=== PATIENT | female | born 1950 | race Hispanic/Latino ===

== ENCOUNTER 2022-08-11 06:46 | Day surgery (SDC) | payer OTHER ==
[~2022-08-11 06:46] MED LIST: MIDAZOLAM 2 MG/2 ML INJ IV NR; SODIUM CHLORIDE 0.9% 1000 ML 1,000 ML IV SCH; ceFAZolin/STERILE WATER 2 GM/20 ML SYRINGE IV NR; fentaNYL 100 MCG/2 ML INJ IV PRN
[2022-08-11] MEDS ORDERED: BUPIVACAINE/PF (0.5%) 5 MG/1 ML 30 ML VIAL INFILTRATI ONE (07:34)
[2022-08-11] MEDS ORDERED: rifAMPin 600 MG VIAL ONE (07:35)
[2022-08-11] MEDS ORDERED: HEPARIN 10,000 UNITS/10 ML VIAL ONE (07:35)
[2022-08-11] MEDS ORDERED: SODIUM CHLORIDE 0.9% 500 ML 500 ML ONE (07:35)
[2022-08-11] MEDS ORDERED: SODIUM CHLORIDE 0.9% 250ML 250 ML ONE (07:35)
[2022-08-11] MEDS ORDERED: SODIUM CHLORIDE P/F VIAL 10 ML 10 ML ONE (07:35)
[2022-08-11] MEDS ORDERED: ROPIVACAINE/PF (0.5%) 5 MG/1 ML 30 ML VIAL ONE (07:44)
[2022-08-11 08:08] LABS: Hematocrit 39.7 % (30.3-42.9); Hemoglobin 13.2 gm/dl (10.1-14.3); Mean Corpuscular HGB Conc 33 % (30-34); Mean Corpuscular Volume 95 fl (79-97); Platelet Count 231 K/mm3 (140-440); Red Blood Count 4.19 M/mm3 (3.65-5.03); Red Cell Distribution Width 17.2 % (13.2-15.2)
[2022-08-11 08:19] LABS: Calcium 9.5 mg/dL (8.4-10.2)
--- NOTE | 2022-08-11 08:23 | Anesthesia Day of Surgery ---
Anesthesia Day of Surgery - Day of Surgery Patient Examined: Yes Patient H&P Reviewed: Yes Patient is NPO: Yes Beta Blockers: Yes (nadolol today AM)
--- NOTE | 2022-08-11 08:23 | Anesthesia Consultation ---
Anesthesia Consult and Med Hx Date of service: 08/11/22 - Airway Anesthetic Teeth Evaluation: Dentures (lower) ROM Head & Neck: Adequate Mental/Hyoid Distance: Inadequate Mallampati Class: Class III Intubation Access Assessment: Possibly Difficult (small mouth opening) - Pre-Operative Health Status ASA Pre-Surgery Classification: ASA3 Proposed Anesthetic Plan: MAC Nerve Block: supraclavicular - Pulmonary Hx Respiratory Symptoms: No Hx Sleep Apnea: Yes (no CPAP) - Cardiovascular System Hx Hypertension: No (hypotension, took midodrine this morning) Hx Heart Attack/AMI: No Hx Cardia Arrhythmia: Yes (tachycardia; took nadolol this morning) - Central Nervous System CVA: No - Endocrine Hx End Stage Renal Disease: Yes (last HD 08/10/22) Hx Liver Disease: No Hx Non-Insulin Dependent Diabetes: Yes Hx Thyroid Disease: No - Hematic Hx Anemia: No - Additional Comments Anesthesia Medical History Comments: Hx mild PONV.
[2022-08-11] MEDS ORDERED: propofoL 200 MG/20 ML VIAL IV ONE ×2 (08:44→10:09)
[2022-08-11] MEDS ORDERED: MIDAZOLAM 2 MG/2 ML INJ ONE (08:45)
[2022-08-11] MEDS ORDERED: HYDROmorphone 0.5 MG/0.5 ML INJ ONE (08:45)
[2022-08-11] MEDS ORDERED: LIDOCAINE MPF (2%) 20 MG/1 ML VIAL 5 ML ONE (09:22)
[2022-08-11] MEDS ORDERED: HEPARIN 10,000 UNITS/10 ML VIAL IV ONE (09:36)
[2022-08-11] MEDS ORDERED: rifAMPin 600 MG VIAL IV ONE (09:37)
[2022-08-11] MEDS ORDERED: SODIUM CHLORIDE 0.9% P/F 10 ML VIAL IV ONE (09:37)
[2022-08-11] MEDS ORDERED: SODIUM CHLORIDE 0.9% 250 ML IVPB IV ONE ×2 (09:38)
[2022-08-11] MEDS ORDERED: SODIUM CHLORIDE 0.9% IRR 1,500 ML BOTTLE IR ONE (09:39)
[2022-08-11] MEDS ORDERED: ONDANSETRON 4 MG/2 ML INJ ONE ×2 (10:46→11:34)
--- NOTE | 2022-08-11 10:52 | Short Stay Summary ---
Short Stay Documentation Date of service: 08/11/22 Narrative H&P: See H&P - History H&P: obtained from office - Allergies and Medications Current Medications: Allergies No Known Allergies Allergy (Verified 08/09/22 13:59) Home Medications Medication Instructions Recorded Confirmed Last Taken Type nadoloL [Corgard] 40 mg PO QDAY 06/21/16 08/11/22 08/11/22 05:00 History Insulin Glargine,Hum.rec.anlog 28 unit SQ QHS 08/09/22 08/11/22 08/10/22 21:00 History [Lantus Solostar] Lispro Insulin [HumaLOG] 6 unit SQ TID 08/09/22 08/11/22 08/10/22 17:00 History Midodrine [Proamatine] 10 mg PO TID 08/09/22 08/11/22 08/11/22 05:00 History Pregabalin [Lyrica] 75 mg PO BID 08/09/22 08/11/22 08/11/22 05:00 History Rosuvastatin Calcium [Crestor] 40 mg PO QDAY 08/09/22 08/11/22 08/10/22 21:00 History Active Medications Cefazolin Sodium (Cefazolin/Sterile Water 2 Gm/20 Ml Syringe) 2 gm IV PREOP NR Stop: 08/11/22 23:59 Fentanyl (Fentanyl 100 Mcg/2 Ml Inj) 100 mcg IV ONCE PRN PRN Reason: sedation for nerve block Stop: 08/11/22 23:59 Last Admin: 08/11/22 08:49 Dose: 100 mcg Sodium Chloride (Nacl 0.9% 1000 Ml) 1,000 mls @ 42 mls/hr IV DIRECT BRIDGETTE Stop: 08/11/22 23:59 Last Admin: 08/11/22 08:45 Dose: 42 mls/hr Midazolam HCl (Midazolam 2 Mg/2 Ml Inj) 2 mg IV PREOP NR Stop: 08/11/22 23:59 Last Admin: 08/11/22 08:49 Dose: 2 mg - Brief post op/procedure progress note Date of procedure: 08/11/22 Pre-op diagnosis: End-Stage Renal Disease Post-op diagnosis: same Procedure: Creation of Left Axillary Artery to Left Axillary Vein Arteriovenous Graft with 6 mm Bovine Artegraft Anesthesia: MAC, regional Surgeon: TARIQ VILLALTA Estimated blood loss: minimal Pathology: none Condition: stable - Disposition Condition at discharge: Good Disposition: 01 HOME / SELF CARE / HOMELESS Short Stay Discharge Plan Activity: other (No heavy lifting with left arm for 2 weeks.) Wound: open to air, keep clean and dry, other (Okay to wash the left arm incisions with soap and water but do not soak in water for 2 weeks.) Follow up with: TARIQ VILLALTA MD [Staff Physician] - 14 Days Prescriptions: HYDROcodone/APAP 5-325 [[place] 5/325] 1 each PO Q6HR PRN #30 tablet PRN Reason: Pain
--- NOTE | 2022-08-11 10:56 | Operative Report ---
Operative Report Operative Report: Date of Procedure: 08/11/2022 Pre-operative Diagnosis: End-Stage Renal Disease Post-operative Diagnosis: Same Procedure(s): 1. The Left Axillary Artery to Axillary Vein Arteriovenous Loop Graft with 6 mm Bovine Artegraft Surgeon: Cem San M.D. Glove Cutter: García Anesthesia: Regional/MAC EBL: Minimal Counts: Correct Complications: None Condition: Stable Findings: Successful creation of left arm AV graft with adequate thrill at the completion of the case. Specimen: None Indication: The patient is a 71-year-old female with a history of end-stage renal disease who is currently on hemodialysis through a right internal jugular permacath. She is in need of long-term dialysis access and requires creation of a left arm arteriovenous graft. She was given the risk, benefits, and alternative procedures and consented to the procedure. Description of Procedure: Prior to being transported to the operating room the patient had a supraclavicular regional block performed in the preoperative area. The patient was then transported to the operating room and laid in supine position. A time out was performed and then the patient was sedated. Her left arm was then prepped and draped in normal sterile fashion. I initially made a longitudinal incision on the medial aspect of the arm just above the antecubital crease and carried this down to the brachial artery using sharp dissection. Evaluation of the brachial artery revealed that the artery was small and not adequate for the inflow of the arteriovenous graft. I made a longitudinal incision on the medial aspect of the arm just distal to the axillary crease and carried this down to the axillary vein using sharp dissection. I then turned my attention to the axillary artery. The axillary artery was dissected circumferentially and controlled with 2 vessel loops. I used a Corrina-Wick tunneler to tunnel the graft in a loop fashion. I used the brachial artery incision as the counterincision for tunneling the graft. After the graft was in place I infused with heparinized saline to ensure that it had not kinked or twisted. At this point I systemically heparinized the patient with 3000 units of heparin IV and then used angled DeBakey clamps to control flow in the axillary artery. I created an arteriotomy using an 11 blade and Wilkerson scissors. I then created an end-to-side anastomosis using a 6-0 Prolene in running fashion. After completing the anastomosis I released the clamps allowing flow into the graft, which had adequate flow. I reclamped the graft just distal to the arterial anastomosis. I then cut the venous portion of the graft to length and beveled the end. I controlled the axillary vein with a Satinsky clamp and created a venotomy using an 11 blade and Wilkerson scissors. I created an end-to-side anastomosis using a 6-0 Prolene in running fashion. Prior to completing the anastomosis I flashed the vein as well as the arterial inflow of the graft and then reclamped both vessels. I flushed the venotomy with heparinized saline, to clear any thrombus. I then completed the anastomosis and removed all clamps allowing flow into the graft. There was an adequate thrill. Hemostasis was achieved with a combination of Quick Clot and direct pressure. Once hemostasis was achieved both incisions were anesthetized with 0.5% Marcaine and closed in 2 layers using a 3-0 Vicryl, in a running fashion, in the deep dermal layer, and a 4-0 Monocryl, in running fashion, in the subcuticular layer. The wounds were then dressed with Dermabond. The patient tolerated the procedure well. All sponge, needle, and instrument counts were correct. The patient was taken to recovery in stable condition.
[2022-08-11] MEDS ORDERED: ONDANSETRON 4 MG/2 ML INJ IV ONE (11:35)
[2022-08-11] MEDS ORDERED: diphenhydrAMINE 50 MG/ML VIAL IV ONE (12:26)
[2022-08-11] MEDS ORDERED: diphenhydrAMINE 50 MG/ML VIAL ONE (12:28)
--- NOTE | 2022-08-11 12:48 | Post Anesthesia Evaluation ---
- Post Anesthesia Evaluation Patient Participated: Yes Airway Patent: Yes Stable Respiratory Function: Yes Nausea/Vomiting: Yes (antiemetics given) Temp > 96.8F: Yes Pain Manageable: Yes Adequeate Hydration: Yes Anesthesia Complications: No
[2022-08-11 13:00] VITALS: BP 130/60
== END 2022-08-11 12:50 | disposition home or self-care (01) ==
LOC: OR 06:46
PROVIDERS: ATTEND Surgery Vascular Surgery
DX: N18.6 End stage renal disease (principal); E11.22 Type 2 diabetes mellitus with diabetic chronic kidney disease; I42.9 Cardiomyopathy, unspecified; G47.30 Sleep apnea, unspecified; Z90.710 Acquired absence of both cervix and uterus; Z98.41 Cataract extraction status, right eye; Z87.442 Personal history of urinary calculi; Z98.42 Cataract extraction status, left eye; Z79.899 Other long term (current) drug therapy; Z91.81 History of falling; Z79.4 Long term (current) use of insulin; Z98.890 Other specified postprocedural states
CPT/HCPCS: 36415; 36830; 64415; 80048; 82962; 85027; C1768; J0690; J1170; J1200; J1644; J2250; J2405; J2704; J2795; J3010; J3490; J7030; J7040; J7050; 64450